=== PATIENT | male | born 2000 | race Two or more races ===

== ENCOUNTER 2024-01-29 02:04 | Emergency (ER) | payer OTHER ==
[~2024-01-29] VITALS: Ht 167.6 cm; Wt 59.0 kg
[2024-01-29] MEDS ORDERED: KETO10TA2 PO (04:01)
[2024-01-29] MEDS ORDERED: AMOX-CLAV 875-1 EACH PO (04:01)
== END 2024-01-29 04:06 ==
LOC: ER 02:05
DX: S09.8XXA Other specified injuries of head, initial encounter (principal); W19.XXXA Unspecified fall, initial encounter; Y93.89 Activity, other specified; Y92.89 Other specified places as the place of occurrence of the external cause; Y99.8 Other external cause status; Z91.018 Allergy to other foods